=== PATIENT | male | born 1980 | race Caucasian/White ===

== ENCOUNTER 2017-01-13 20:38 | Emergency (ER) | payer MEDICAID, OTHER, SELFPAY ==
[~2017-01-13] VITALS: Ht 180.3 cm; Wt 74.5 kg
[2017-01-13 20:39] VITALS: BP 127/76
[2017-01-13] MEDS ORDERED: KETOROLAC 30 MG/1 ML ONE (21:05)
[2017-01-13] MEDS ORDERED: KETOROLAC 30 MG/1 ML IM ONE (21:30)
== END 2017-01-13 22:18 | disposition home or self-care (01) ==
LOC: ED 22:09
DX: S39.012A Strain of muscle, fascia and tendon of lower back, initial encounter (principal); X58.XXXA Exposure to other specified factors, initial encounter; Y93.89 Activity, other specified; Y92.89 Other specified places as the place of occurrence of the external cause; Y99.8 Other external cause status
CPT/HCPCS: 72110; 96372; 99284; J1885

== ENCOUNTER 2017-07-26 19:11 | Emergency (ER) | payer MEDICAID ==
[~2017-07-26] VITALS: Ht 190.5 cm; Wt 71.1 kg
[2017-07-26 20:27] VITALS: BP 134/82
== END 2017-07-26 20:30 | disposition home or self-care (01) ==
LOC: ED 20:24
DX: K02.9 Dental caries, unspecified (principal)
CPT/HCPCS: 99283